=== PATIENT | female | born 1990 | race Caucasian/White ===

== ENCOUNTER 2020-07-14 06:47 | Outpatient (NON) | payer OTHER, SELFPAY ==
[2020-07-14 16:30] LABS: SARS-CoV-2 RNA PCR Negative
== END 2020-07-14 06:48 ==
PROVIDERS: Visit Provider Otolaryngology Plastic Surgery within the Head & Neck
DX: Z01.812 Encounter for preprocedural laboratory examination (principal); Z20.828 Contact with and (suspected) exposure to other viral communicable diseases
CPT/HCPCS: 87635; C9803; U0003